=== PATIENT | male | born 1965 | race Caucasian/White ===

== ENCOUNTER 2019-12-23 17:30 | Emergency (ER) | payer OTHER, SELFPAY ==
[2019-12-23 17:59] VITALS: BP 141/84; PULSE 75; RESP 18; TEMP 36.6; O2SAT 97; BMI 25.2
--- NOTE | 2019-12-23 18:47 | XRR_ITS ---
PROCEDURE INFORMATION: Exam: XR Left Hand Exam date and time: 12/23/2019 6:48 PM Age: 54 years old Clinical indication: Pain; Hand; Left; Additional info: Trauma TECHNIQUE: Imaging protocol: XR Left hand. Views: 3 or more views. COMPARISON: No relevant prior studies available. FINDINGS: Bones/joints: The bones are intact and in normal alignment. Mild degenerative changes of the 1st MCP and distal IP joints. Soft tissues: Normal. XR/XR hand LT min 3V* [id number] IMPRESSION: No fracture or dislocation.
--- NOTE | 2019-12-23 18:47 | XRR_ITS ---
PROCEDURE INFORMATION: Exam: XR Right Hand Exam date and time: 12/23/2019 6:48 PM Age: 54 years old Clinical indication: Pain; Hand; Right; Additional info: Trauma TECHNIQUE: Imaging protocol: XR Right hand. Views: 3 or more views. COMPARISON: No relevant prior studies available. FINDINGS: Bones/joints: Normal. Soft tissues: Normal. XR/XR hand RT min 3V* [id number] IMPRESSION: No acute findings.
--- NOTE | 2019-12-23 18:48 | ED_ITS ---
HPI - Extremity Problem General: Chief complaint: Extremity Injury, Upper Stated complaint: finger lac Time Seen by Provider: 12/23/19 18:42 History of Present Illness: HPI Narrative: Patient was working [employer] afternoon and somehow got his fingers between the head chute the [employer] in and ended up with a laceration left hand and right hand tetanus is up-to-date MD Complaint: extremity pain Onset (ago): hour(s) Pain Consistency: constant Location: left, right and upper extremity Severity scale (1-10): 5 Quality: aching Radiation: none Relieving factors: nothing Associated symptoms: Reports no associated symptoms; Deny chest pain, fever(s) or rash Review of Systems Narrative: Laceration to the left middle finger and right middle finger from interaction with Aleksandar and a head chute this afternoon Const: Denies: fever, chills or body aches Eyes: Denies: change in vision or blurry vision ENMT: Denies: throat pain or nasal congestion Card: Denies: chest pain or shortness of breath on exertion Resp: Denies: shortness of breath, productive cough or non-productive cough GI: Denies: abdominal pain, nausea or vomiting : Denies: difficulty urinating Musc: Denies: extremity pain Skin/Breast: Denies: rash Neuro: Denies: headache Psych: Denies: anxiety or depression Levon/Lymph: Denies: easy bruising PFSH ED PFSH: Social History Smoking and tobacco status: never smoked Physical Exam Const: COMMON NORMALS: no apparent distress, average body habitus and oriented x3 HENMT: COMMON NORMALS: normocephalic HEAD & SCALP: normal to inspection and normocephalic FACE & SINUS: normal facial exam Eye: COMMON NORMALS: conjunctivae normal GENERAL EYE: normal appearance of both eyes CONJUNCTIVA: Yes conjunctivae normal Neck/C-Spine: COMMON NORMALS: no JVD Chest: COMMONS NORMALS: inspection of chest normal Resp: COMMON NORMALS: normal respiratory effort and clear to auscultation bilaterally AUSCULTATION: clear to auscultation bilaterally Cardio: COMMON NORMALS: no JVD, regular rate and regular rhythm RATE: regular rate RHYTHM: regular rhythm GI: COMMON NORMALS: normal to inspection, nondistended, normoactive bowel sounds Extremity: COMMON NORMALS: normal to inspection and full ROM Neuro: COMMON NORMALS: oriented x3 Skin: WOUNDS: Yes wounds noted (Has large laceration to left middle finger lateral aspect that extends from the MIP joint down to the dorsal palmar aspect of the hand and then has a laceration the right middle finger on the dorsal aspect at the DIP joint) WOUNDS: Yes wounds noted (Has large laceration to left middle finger lateral aspect that extends from the MIP joint down to the dorsal palmar aspect of the hand and then has a laceration the right middle finger on the dorsal aspect at the DIP joint) NAILS: other (Neurovascular status is intact has limited range of motion due to laceration no active bleeding) Procedures Laceration Laceration 1: Site: hand Side (If applicable): left Size (cm): 5 Description: linear and irregular Depth: simple, single layer Local Anesthetic: lidocaine 1% Amount of anesthesia used (mL): 5 Pre-repair: wound explored, irrigated extensively and deep structures inta ct Skin layer closed with: vicryl Size (cm): 3-0 Number of sutures: 9 Technique: simple, interrupted Laceration 2: Site: hand Side (If applicable): right Size (cm): 2 Description: flap Depth: simple, single layer Local Anesthetic: lidocaine 1% Amount of anesthesia used (mL): 1 Pre-repair: wound explored, irrigated extensively and deep structures intact Skin layer closed with: vicryl Size (cm): 3-0 Number of sutures: 2 Course Vital Signs: Vital signs: Vital Signs Temperature 97.8 F 12/23/19 17:59 Pulse Rate 75 12/23/19 17:59 Respiratory Rate 18 12/23/19 17:59 Blood Pressure 141/84 12/23/19 17:59 Pulse Oximetry 97 12/23/19 17:59 MDM - Extremity (Nontraumatic) MDM Narrative: Medical decision making narrative: Patient had good neurovascular status after clean up and suturing was finished. Patient had good movement of the fingers. Discharge Plan Discharge Patient Disposition: Home, Self-Care Clinical Impression: Laceration of finger of left hand Qualifiers: Encounter type: initial encounter Finger: middle finger Damage to nail status: without damage Foreign body presence: without foreign body Qualified Code(s): S61.213A - Laceration without foreign body of left middle finger without damage to nail, initial encounter Laceration of finger of right hand Qualifiers: Encounter type: initial encounter Finger: middle finger Damage to nail status: without damage Foreign body presence: without foreign body Qualified Code(s): S61.212A - Laceration without foreign body of right middle finger without damage to nail, initial encounter Condition: Stable Prescriptions: New Keflex 500 mg capsule 500 mg PO TID 10 Days Qty: 30 RF: 0 Discharge Orders: Discharge Order (Routine); Ordered 12/23/19 Ordered By: Abrahan Mclean Discharge Diet: Usual diet Discharge Activity: Increase activity as tolerated Patient Instructions: Laceration (ED) Activity Restrictions/Additional Instructions: Follow-up with medical provider as directed. Take medications as prescribed. Return to the ER or your medical provider if condition worsens. Please read and understand discharge instructions. If any questions ask please. Sutures out in 7 days any signs of infection develop follow-up here with your family provider Coding Level of Care Code ED Weapons System Instrument Mechanic for Alli Serna Exam Comprehensive
[2019-12-23] MEDS: lidocaine 1% INJ 20 mL 6 ML INTRADERMA (18:55)
[2019-12-23] MEDS: cephALEXin 500 mg Capsule PO (18:59)
[2019-12-23] MEDS: acetaminophen 500 mg Tablet 1000 MG PO (19:48)
[2019-12-23 19:53] VITALS: BP 134/74; PULSE 74; RESP 18; O2SAT 98
== END 2019-12-23 19:54 | disposition home or self-care (01) ==
PROVIDERS: Emergency Provider Nurse Practitioner Family
DX: S61.212A Laceration without foreign body of right middle finger without damage to nail, initial encounter (principal); S61.213A Laceration without foreign body of left middle finger without damage to nail, initial encounter; W23.1XXA Caught, crushed, jammed, or pinched between stationary objects, initial encounter
CPT/HCPCS: 12001; 12002; 73130; 96372; 99281; 99283; J2001

== ENCOUNTER 2020-09-18 08:02 | Emergency (ER) | payer OTHER, SELFPAY ==
[2020-09-18] VITALS (16 sets, daily range): BP systolic 104–143; BP diastolic 63–87; PULSE 45–66; RESP 13–20; O2SAT 96–100; BMI 24.7
--- NOTE | 2020-09-18 08:06 | XR_ITS ---
WS: [id number] XR chest 1V portable [id number] REASON FOR EXAM: dyspnea/cough FINDINGS: No previous examination for comparison. Mild tortuosity of the thoracic aorta. Normal heart size. Increased density behind the left cardiac silhouette. Prominence of the overall bronchovascular remy ngs. No findings of pleural fluid. XR/XR chest 1V portable [id number] IMPRESSION: Possible left lower lobe pneumonitis. Follow-up chest x-ray recommended.
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
--- NOTE | 2020-09-18 08:14 | CT_ITS ---
WS: [id number] CT CERVICAL SPINE HISTORY: trauma TECHNIQUE: Contiguous 2.5 mm axial imaging performed through the entire cervical spine. Sagittal and coronal reformats also performed. All CT scans at [facility] use at least one of these do se optimization techniques: automated exposure control; mA and/or kV adjustment per patient size (inc ludes targeted exams where dose is matched to clinical indication); or iterative reconstruction. DLP: 685.5 mGy.cm COMPARISON: None available. Straightening of the normal cervical lordosis. Slight reversal centered at the C5-6 level. Moderate d isc space narrowing at C5-6 and C6-7. Craniocervical junction is normally aligned. Predental space is normal. Lateral masses of C1 and C2 are aligned odontoid is intact. No cervical spine fractures. Mil d facet joint arthritis and vertebral body osteophytes throughout the cervical spine. Central osteoph yte encroaches upon the ventral thecal sac at C6 with mild foraminal stenosis also. Moderate LEFT and mild RIGHT foraminal stenosis at C6-7. Lung apices are clear. No paravertebral soft tissue abnormalities. CT/CT cervical spin wo con* [id number] IMPRESSION: 1. No cervical spine fracture. 2. Mild to moderate spondylosis throughout the cervical spine. Moderate LEFT f oraminal stenosis at C6-7.
--- NOTE | 2020-09-18 08:14 | CT_ITS ---
WS: [id number] CT FACIAL BONES HISTORY: trauma TECHNIQUE: Images obtained from the supraorbital location through the mandible. Soft tissue and bone windows are reviewed. Coronal and sagittal reformats have also been submitted. DLP: 734.[address] scans at [facility] use at least one of these dose optimization techniques: automat ed exposure control; mA and/or kV adjustment per patient size (includes targeted exams where dose is matched to clinical indication); or iterative reconstruction. COMPARISON: None available. No facial bone fractures are identified. The nasal bones and zygomatic arches are intact. No air-flui d levels within the sinuses. There is severe soft tissue injury centered over the nasion with greater extension over the LEFT orbit and globe. Increased soft tissue edema and hemorrhage extends into the LEFT inner canthus. There are numerous small foci of increased density consistent with foreign body scattered in the soft tissue injury. The largest measures 2.8 mm. No post septal hematoma or edema. There is very slight posterior displacement of the LEFT globe. CT/CT facial bones wo con* [id number] IMPRESSION: 1. No facial bone fracture. 2. Severe soft tissue injury centered over the nasion, LEFT orbit and globe an d LEFT inner canthus. 3. Numerous tiny foreign body objects with the largest measuring 2.8 mm in the soft tissue injury.
--- NOTE | 2020-09-18 08:24 | PC.NURSE ---
Pt to CT at 0820 with spinal precautions.
[2020-09-18] MEDS: tetanus-dipt-pertussis 0.5 mL SDV IM (08:49)
[2020-09-18] MEDS: ceFAZolin 1,000 MG in sodium chloride 0.9% (plus) 50 ML 100 MG IV (08:49)
--- NOTE | 2020-09-18 09:04 | PC.NURSE ---
XR performed at bedside.
[2020-09-18] MEDS: ondansetron 2 mg/ML SDV 2 mL 4 MG IVP (09:08)
[2020-09-18] MEDS: morphine 4 mg/mL SDV 1 mL IVP ×2 (09:09→09:38)
[2020-09-18 09:17] LABS: Basophils # 0.1 10^3/uL (0.0-0.1); Basophils % 0.5 %; Eosinophils # 0.2 10^3/uL (0.0-0.8); Eosinophils % 2.3 %; Hematocrit 46.1 % (42.0-52.0); Lymphocytes # 1.4 10^3/uL (0.8-4.8); Lymphocytes % 13.3 %; Mean Corpuscular HGB Conc 32.5 g/dL (30.0-36.0); Mean Corpuscular Hemoglobin 29.9 pg (28.0-34.0); Mean Platelet Volume 10.6 fL (7.4-10.4); Monocytes # 0.6 10^3/uL (0.2-0.9); Monocytes % 5.7 %; Neutrophils # 8.04 10^3/uL (1.8-7.7); Neutrophils % 77.6 %; Nucleated Red Blood Cells % 0 %; Platelet Count 242 10^3/cmm (130-400); Red Blood Count 5.01 10^6/uL (4.1-5.3); Red Cell Distribution Width 13.6 % (12.1-15.1); White Blood Count 10.4 10^3/uL (4.0-10.0)
[2020-09-18 09:32] LABS: Alanine Aminotransferase 58 U/L (0-41); Albumin Level 4.4 g/dL (3.5-5.2); Alkaline Phosphatase 52 IU/L (40-130); Aspartate Amino Transferase 67 U/L (0-40); Blood Urea Nitrogen 17 mg/dL (6-20); Calcium 9.3 mg/dL (8.5-10.5); Carbon Dioxide 24 mmol/L (22-29); Chloride 104 mmol/L (98-107); Globulin 2.5 g/dL (1.3-4.6); Glomerular Filtration Rate 87.6 mL/min (90-130); Glucose 113 mg/dL (65-115); Osmolality Calculated 288 mOsm/kg (285-295); Sodium 138 mmol/L (136-145); Total Bilirubin 0.5 mg/dL (0.15-1.2); Total Protein 6.9 g/dL (6.6-8.7)
[2020-09-18 09:55] LABS: Anion Gap 14.2 (5-19); Potassium 4.2 mmol/L (3.5-5.1)
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
[2020-09-18 11:11] LABS: Add Urine Microscopic? NO
[2020-09-18 11:21] LABS: Bilirubin Urine Neg (Negative); Blood Urine Neg (Negative); Glucose Urine UA Norm (Normal); Ketones Urine Negative (Negative); Leukocyte Esterase Urine Negative (Negative); Nitrate Urine Negative (Negative); Protein Urine Neg (Negative); Specific Gravity, Urine 1.015 (1.005-1.030); Urine Appearance Clear (CLEAR); Urine Color Yellow (Yellow); Urobilinogen Urine Neg (Negative); pH Urine 6.5 (5-7)
--- NOTE | 2020-09-18 12:09 | PC.NURSE ---
Report given to JOSÉ MANUEL Thomas
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
== END 2020-09-18 13:18 | disposition home or self-care (01) ==
PROVIDERS: Emergency Provider Family Medicine
DX: M54.2 Cervicalgia (principal); S01.81XA Laceration without foreign body of other part of head, initial encounter; V89.2XXA Person injured in unspecified motor-vehicle accident, traffic, initial encounter
CPT/HCPCS: 12015; 12345; 70450; 70486; 71045; 72125; 80053; 81003; 85025; 90471; 90715; 96365; 96375; 96376; 99283; 99284; J0690; J2270; J2405

== ENCOUNTER 2020-09-23 12:10 | Outpatient (CLI) | payer OTHER, SELFPAY ==
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
== END 2020-09-23 12:11 | disposition home or self-care (01) ==
PROVIDERS: PCP Internal Medicine; Visit Provider Family Medicine
DX: V89.2XXA Person injured in unspecified motor-vehicle accident, traffic, initial encounter (principal); R07.9 Chest pain, unspecified; J90 Pleural effusion, not elsewhere classified; J98.11 Atelectasis
CPT/HCPCS: 71046

== ENCOUNTER 2021-07-10 09:19 | Outpatient (CLI) | payer OTHER, SELFPAY ==
[2021-07-10 09:45] VITALS: BP 144/84; PULSE 54; RESP 17; TEMP 36.6; O2SAT 97
[2021-07-10 10:09] VITALS: BP 139/66; PULSE 49; RESP 18; O2SAT 97
[2021-07-10 11:05] VITALS: BP 132/86; PULSE 51; RESP 16; TEMP 36.7; O2SAT 95
== END 2021-07-10 11:09 | disposition home or self-care (01) ==
LOC: OPS 09:20
PROVIDERS: PCP Nurse Practitioner Family; Visit Provider Nurse Practitioner Family
DX: U07.1 COVID-19 (principal)
CPT/HCPCS: 96365